=== PATIENT | female | born 2000 | race Caucasian/White ===

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

== ENCOUNTER 2022-06-27 15:16 | Emergency (ER) | payer OTHER, SELFPAY ==
--- NOTE | ~2022-06-27 | XR_ITS ---
EXAMINATION: XR chest 2V DATE: 06/27/2022 16:09 INDICATION: Chest pain with inspiration. TECHNIQUE: Frontal and lateral views of the chest were obtained. COMPARISON: Chest 2 views 09/03/2021 FINDINGS: The chest demonstrates clear lungs without pneumonia, pleural effusion, or pneumothorax. Th e heart size is normal. IMPRESSION: 1. No acute cardiopulmonary disease. Reviewed, dictated and finalized at location A.
--- NOTE | ~2022-06-27 | XR_ITS ---
EXAMINATION: XR ribs RT 2V DATE: 06/27/2022 17:10 INDICATION: Right mid and lower rib pain on inspiration. TECHNIQUE: 2 views of the right ribs on 3 radiographs were obtained. COMPARISON: Chest 2 views 06/27/2022 FINDINGS: There is no right-sided pneumonia, pleural effusion, pneumothorax. IMPRESSION: 1. No rib fracture. Reviewed, dictated and finalized at location A. IMPRESSION: 1. No rib fracture.
[2022-06-27 15:58] VITALS: BP 123/71; PULSE 92; RESP 20; TEMP 36.9; O2SAT 100
[2022-06-27] MEDS: KETOROLAC (*BKC) 60 MG/2 ML VIAL IM (17:14)
[2022-06-27 17:21] LABS: Basophils Percent Auto 0.3 % (0.2-1.2); Eosinophils Absolute Auto 0.1 K/mm3 (0-0.3); Eosinophils Percent Auto 0.8 % (0-4.4); Hematocrit 39.3 % (37.0-47.0); Hemoglobin 13.2 g/dL (12.0-15.0); Immature Granulocyte Absolute 0.02 K/mm3 (0.00-0.031); Immature Granulocyte Percent A 0.3 % (0-0.5); Lymphocytes Percent Auto 22.8 % (18.3-44.2); Mean Corpuscular HGB Conc 33.6 g/dl (32-36); Mean Corpuscular Hemoglobin 31.8 pg (26-34); Mean Corpuscular Volume 94.7 fl (80-100); Mean Platelet Volume 10.1 fl (7.4-10.4); Monocytes Absolute Auto 0.5 K/mm3 (0.1-0.6); Monocytes Percent Auto 6.4 % (2.6-8.5); Neutrophils Absolute Auto 5.2 K/mm3 (1.3-6.7); Neutrophils Percent Auto 69.4 % (45.5-73.1); Platelet Count Result 310 k/mm3 (150-375); Red Blood Count 4.15 M/mm3 (4.2-5.4); Red Cell Distribution Width 12.1 % (11.5-14.5); White Blood Count 7.5 K/mm3 (4.5-10.0)
[2022-06-27 17:32] LABS: Anion Gap 15 mmol/L (8-16); Blood Urea Nitrogen 17 mg/dL (8-21); Calcium 8.9 mg/dL (8.9-10.7); Carbon Dioxide 25 mmol/L (22-30); Chloride 103 mmol/L (98-107); Estimated CRCL calculation 96 ml/min; Estimated Glomerular Filt Rate > 60; Glucose 97 mg/dL (65-110); Potassium 3.7 mmol/L (3.4-5.0); Sodium 143 mmol/L (134-143)
[2022-06-27 17:35] VITALS: RESP 18
[2022-06-27 17:43] LABS: D Dimer < 0.27 ug/mL (<0.48)
--- NOTE | 2022-06-27 19:16 | ED.GENADULT ---
HPI - General Adult General Chief complaint: Unspecified Stated complaint: abd pain Time Seen by Provider: 06/27/22 16:41 History of Present Illness HPI narrative: Patient is a 21-year-old female who presents ER with right-sided chest discomfort. Its in her ribs. She was pouring water for dogs when the pain began. Its worse with deep breath. No fevers or chills or sweats. No runny nose or sore throat or productive cough. No hemoptysis. No lower extremity swelling or calf pain. Has not tried any pain medication. She does not take any hormones. Related Data Home Medications Medication Instructions Recorded Confirmed clonidine HCl 0.1 mg tablet 04/26/21 aripiprazole 10 mg tablet mg 06/27/22 duloxetine 20 mg capsule,delayed mg PO 06/27/22 release Allergies Allergy/AdvReac Type Severity Reaction Status Date / Time No Known Allergies Allergy Unknown Verified 06/27/22 17:16 Review of Systems Review of Systems: All systems reviewed & are unremarkable except as noted in HPI and below Constitutional: Constitutional: Denies chills and Denies fever(s) Cardiovascular: Cardiovascular: Reports chest pain, Denies radiating jaw, neck or arm pain and Denies palpitations Respiratory: Respiratory: Denies cough, Reports pain on inspiration, Denies dyspnea and Denies wheezing Gastrointestinal: Gastrointestinal: Denies abdominal pain, Denies nausea and Denies vomiting PMFSH Past Medical History Medical History (Updated 06/27/22 @ 19:21 by Marc De La Cruz MD) Anxiety Surgical History Surgical History (Updated 06/27/22 @ 19:17 by Marc De La Cruz MD) No pertinent past surgical history Social History Social History Smoking status: Former smoker Substance use: never Exam Narrative: GENERAL: Well-appearing, well-nourished, and in no acute distress. HEAD: Normocephalic, atraumatic. CHEST: Clear to auscultation. No respiratory distress. Tender palpation over the ribs on the right side posterior laterally. HEART: Regular rate and rhythm. Normal peripheral pulses. ABDOMEN: Soft, nontender, nondistended. EXTREMITIES: Normal range of motion. No edema. SKIN: Warm, dry, no rash. NEURO: Alert and oriented x3. PSYCH: Normal mood and affect. Course Course Emergency Course: Imaging labs unremarkable. Toradol given for pain. Discharge home. Vital Signs Vital signs: Vital Signs Temperature 98.5 F 06/27/22 15:58 Pulse Rate 92 06/27/22 15:58 Respiratory Rate 20 06/27/22 15:58 Blood Pressure 123/71 06/27/22 15:58 Pulse Oximetry 100 06/27/22 15:58 Oxygen Delivery Room Air 06/27/22 15:58 Temperature 98.5 F 06/27/22 15:58 Pulse Rate 92 06/27/22 15:58 Respiratory Rate 18 06/27/22 17:35 Blood Pressure 123/71 06/27/22 15:58 Pulse Oximetry 100 06/27/22 15:58 Oxygen Delivery Room Air 06/27/22 15:58 Medical Decision Making Vital Signs Vital Signs: Vital Signs Temperature 98.5 F 06/27/22 15:58 Pulse Rate 92 06/27/22 15:58 Respiratory Rate 20 06/27/22 15:58 Blood Pressure 123/71 06/27/22 15:58 Pulse Oximetry 100 06/27/22 15:58 Oxygen Delivery Room Air 06/27/22 15:58 Temperature 98.5 F 06/27/22 15:58 Pulse Rate 92 06/27/22 15:58 Respiratory Rate 18 06/27/22 17:35 Blood Pressure 123/71 06/27/22 15:58 Pulse Oximetry 100 06/27/22 15:58 Oxygen Delivery Room Air 06/27/22 15:58 Lab Data Result diagrams: 06/27/22 17:15 06/27/22 17:15 Labs: Lab Results 06/27/22 06/27/22 06/27/22 Range/Units 17:15 17:15 17:15 WBC 7.5 (4.5-10.0) K/mm3 RBC 4.15 L (4.2-5.4) M/mm3 Hgb 13.2 (12.0-15.0) g/dL Hct 39.3 (37.0-47.0) % MCV 94.7 (80-100) fl MCH 31.8 (26-34) pg MCHC 33.6 (32-36) g/dl RDW 12.1 (11.5-14.5) % Plt Count 310 (150-375) k/mm3 MPV 10.1 (7.4-10.4) fl Immature Gran % (Auto)
[2022-06-27 19:32] VITALS: BP 100/67; PULSE 65; RESP 18; O2SAT 100
== END 2022-06-27 19:34 | disposition home or self-care (01) ==
PROVIDERS: Emergency Provider Emergency Medicine
DX: S29.011A Strain of muscle and tendon of front wall of thorax, initial encounter (principal); F41.9 Anxiety disorder, unspecified; Z87.891 Personal history of nicotine dependence; X58.XXXA Exposure to other specified factors, initial encounter
CPT/HCPCS: 36415; 71046; 71100; 80048; 85025; 85380; 96372; 99283; J1885

== ENCOUNTER 2022-08-11 01:36 | Emergency (ER) | payer OTHER, SELFPAY ==
--- NOTE | ~2022-08-11 | CT_ITS ---
EXAMINATION: CT hand RT w con DATE: 08/11/2022 06:28 INDICATION: Cat bite to right index finger. TECHNIQUE: Computed tomography (CT) of the right hand was performed with 100 cc Omnipaque 350 intrave nous contrast. The dose-length product was 426.89 mGy-cm. Automated exposure control and iterative re construction technique were employed. COMPARISON: None FINDINGS: There is a possible 2 mm loculated collection at the second PIP joint. There is mild surrou nding edema. There is possible flexor and extensor tendon tenosynovitis. No fracture is identified.. IMPRESSION: 1. Possible 2 mm loculated fluid collection at the second PIP joint with mild surrounding edema. Poss ible flexor and extensor tendon synovitis. Findings suspicious for infection. Consider correlation [facility] MRI. Reviewed, dictated and finalized at location A. IMPRESSION: 1. Possible 2 mm loculated fluid collection at the second PIP joint with mild s urrounding edema. Possible flexor and extensor tendon synovitis. Findings suspi cious for infection. Consider correlation with MRI.
--- NOTE | ~2022-08-11 | XR_ITS ---
XR hand RT min 3V 08/11/2022 04:16 Indication: Patient bit by cat. Right second finger pain. Procedure: 3 views right hand Comparison: No prior studies for comparison. Findings: No fracture, subluxation or dislocation. No significant joint effusion. No foreign bodies. Impression: 1: No acute fracture. Reviewed, dictated and finalized at location A. Impression: 1: No acute fracture.
[2022-08-11 01:43] VITALS: BP 97/63; PULSE 94; RESP 18; TEMP 36.6; O2SAT 100
--- NOTE | 2022-08-11 03:54 | ED.GENADULT ---
HPI - General Adult General Chief complaint: Animal Bite <Navneet Seran MD - Last Filed: 08/11/22 06:58> Stated complaint: cat bite R hand <Navneet Serna MD - Last Filed: 08/11/22 06:58> Time Seen by Provider: 08/11/22 03:40 <Navneet Serna MD - Last Filed: 08/11/22 06:58> History of Present Illness HPI narrative: Patient 22-year-old female who presents the emergency department with chief complaint of cat bite to right index finger. The patient states that on Friday night she was bit by her cat the patient states that she noticed that her finger started getting red and swollen and it hurts to extend her finger. The patient reports no fever reports that the redness and swelling is localized to the index finger on the right hand the patient is right-hand dominant reports he is unsure of her last tetanus status. <Navneet Serna MD - Last Filed: 08/11/22 06:58> Related Data Home medications: Home Medications Medication Instructions Recorded Confirmed clonidine HCl 0.1 mg tablet 04/26/21 aripiprazole 10 mg tablet mg 06/27/22 duloxetine 20 mg capsule,delayed mg PO 06/27/22 release <Navneet Serna MD - Last Filed: 08/11/22 06:58> Allergies/adverse reactions: Allergies Allergy/AdvReac Type Severity Reaction Status Date / Time No Known Allergies Allergy Unknown Verified 08/11/22 07:32 <Navneet Serna MD - Last Filed: 08/11/22 06:58> Review of Systems Review of Systems: A 10 system review of systems was completed on the patient and is negative except for what is stated in the HPI. Nursing and ancillary documentation was reviewed. <Navneet Serna MD - Last Filed: 08/11/22 06:58> PMFSH Past Medical History Medical History: Medical History (Updated 08/11/22 @ 06:58 by Navneet Serna MD) Anxiety <Navneet Serna MD - Last Filed: 08/11/22 06:58> Surgical History Surgical History: Surgical History (Updated 06/27/22 @ 19:17 by Marc De La Cruz MD) No pertinent past surgical history <Navneet Serna MD - Last Filed: 08/11/22 06:58> Social History Social History: Social History Smoking status: Former smoker Substance use: never <Navneet Serna MD - Last Filed: 08/11/22 06:58> Exam Narrative: GENERAL: Well-appearing, well-nourished, and in no acute distress. HEAD: Normocephalic, atraumatic. EYES: PERRLA and EOMI. ENT: Nares clear, no rhinorrhea or epistaxis. Mucous membranes moist. NECK: Supple. CHEST: Clear to auscultation. No respiratory distress. HEART: Regular rate and rhythm. No murmur heard. Normal peripheral pulses. ABDOMEN: Soft, nontender, nondistended, normal active bowel sounds. EXTREMITIES: Normal range of motion. No edema. SKIN: Warm, dry, there is redness and swelling of the right index finger. NEURO: No focal deficits. Alert and oriented x3. PSYCH: Normal mood and affect. <Navneet Serna MD - Last Filed: 08/11/22 06:58> GENERAL: Well-appearing, well-nourished, and in no acute distress. HEAD: Normocephalic, atraumatic. EYES: PERRLA and EOMI. ENT: Mucous membranes moist. NECK: Supple. CHEST: Clear to auscultation. No respiratory distress. HEART: Regular rate and rhythm. No murmur heard. Normal peripheral pulses. ABDOMEN: Soft, nontender, nondistended, normal active bowel sounds. EXTREMITIES: Focused exam of the right hand reveals a second digit that is swollen and partially flexed, unable to perform active flexion or extension due to pain, passive flexion extension results in exquisite discomfort. She is tender over the flexor tendon. There is some redness and lymphangitic streaking moving down the hand. Additionally patient has what appears to be a pustule over the proximal phalanx. SKIN: Warm, dry, there is redness and swelling of the right index finger
[2022-08-11] MEDS: TETANUS,DIPHTHERIA,AC PERTUSSIS ADULT (0.5 ML) BOOSTRIX IM (04:32)
[2022-08-11] MEDS: SODIUM CHLORIDE 0.9% IV 1,000 ML 999 ML IV CONT (04:41)
[2022-08-11 04:46] LABS: Basophils Percent Auto 0.3 % (0.2-1.2); Eosinophils Absolute Auto 0.1 K/mm3 (0-0.3); Eosinophils Percent Auto 1.1 % (0-4.4); Hematocrit 35.2 % (37.0-47.0); Hemoglobin 11.8 g/dL (12.0-15.0); Immature Granulocyte Absolute 0.04 K/mm3 (0.00-0.031); Immature Granulocyte Percent A 0.3 % (0-0.5); Lymphocytes Absolute Auto 2.43 K/mm3 (0.9-3.2); Lymphocytes Percent Auto 20.5 % (18.3-44.2); Mean Corpuscular HGB Conc 33.5 g/dl (32-36); Mean Corpuscular Hemoglobin 31.7 pg (26-34); Mean Corpuscular Volume 94.6 fl (80-100); Monocytes Absolute Auto 1.5 K/mm3 (0.1-0.6); Monocytes Percent Auto 12.2 % (2.6-8.5); Neutrophils Absolute Auto 7.8 K/mm3 (1.3-6.7); Neutrophils Percent Auto 65.6 % (45.5-73.1); Platelet Count Result 316 k/mm3 (150-375); Red Blood Count 3.72 M/mm3 (4.2-5.4); Red Cell Distribution Width 12.3 % (11.5-14.5); White Blood Count 11.9 K/mm3 (4.5-10.0)
[2022-08-11 04:58] LABS: Alanine Aminotransferase 18 U/L (6-35); Albumin Level 4.4 g/dL (3.5-5.1); Alkaline Phosphatase 72 U/L (38-126); Anion Gap 9 mmol/L (8-16); Aspartate Amino Transferase 25 U/L (14-36); Bilirubin,Total 1.6 mg/dL (0.2-1.3); Blood Urea Nitrogen 19 mg/dL (7-17); Calcium 8.8 mg/dL (8.4-10.2); Carbon Dioxide 23 mmol/L (22-30); Chloride 106 mmol/L (98-107); Estimated CRCL calculation 110 ml/min; Estimated Glomerular Filt Rate > 60; Glucose 98 mg/dL (65-110); Potassium 3.9 mmol/L (3.4-5.0); Sodium 138 mmol/L (137-145)
[2022-08-11] MEDS: AMPICILLIN SULB 3 GM/NS 100 ML 3 GM/100 ML VIAL IVPB (05:13)
[2022-08-11] MEDS: HYDROmorphone HCL INJ (*CRX) 1 MG/ML SYR IV PUSH (07:24)
[2022-08-11 07:32] VITALS: BP 107/70; PULSE 84; RESP 18; O2SAT 100
[2022-08-11 08:16] VITALS: BP 102/89; PULSE 86; RESP 18; O2SAT 100
== END 2022-08-11 08:54 | disposition short-term general hospital (02) ==
PROVIDERS: Emergency Provider Emergency Medicine; PCP Obstetrics & Gynecology
DX: S66.10 Unspecified injury of flexor muscle, fascia and tendon of other and unspecified finger at wrist and hand level (principal); F41.9 Anxiety disorder, unspecified; Z23 Encounter for immunization; W55.01XA Bitten by cat, initial encounter
CPT/HCPCS: 36415; 73130; 73201; 80053; 83605; 85025; 90471; 90715; 96361; 96374; 96375; 99285; J0295; J1170; J7030; Q9967

== ENCOUNTER 2022-10-31 23:59 | Emergency (ER) | payer OTHER, SELFPAY ==
--- NOTE | ~2022-10-31 | XR_ITS ---
Portable chest x-ray Comparison: 06/27/2022 Clinical History: Weakness Findings: Lungs are clear, without focal consolidation or pleural effusion. Cardiomediastinal silho uette is stable. Bones and soft tissues are unremarkable. Impression: Normal chest. Reviewed, dictated and finalized at [facility]. EM MILL ROLLER Impression: Normal chest.
[2022-11-01] VITALS (17 sets, daily range): BP systolic 96–114; BP diastolic 60–75; PULSE 88–89; RESP 16; O2SAT 99–100
--- NOTE | 2022-11-01 01:08 | ECG_ITS ---
Measurements Intervals [place] Rate: 84 P: 59 [place]: 138 QRS: 61 QRSD: 97 T: 28 QT: 361 QTc: 428 Interpretive Statements SINUS RHYTHM NORMAL ECG COMPARED TO ECG 09/03/2021 01:47:37 NO SIGNIFICANT CHANGES Electronically Signed On 11-01-2022 7:45:30 DERMATOLOGY TECHNICIAN by Agusto Hawley D.O.
[2022-11-01] MEDS: SODIUM CHLORIDE 0.9% IV 1,000 ML 999 ML IV CONT (01:25)
--- NOTE | 2022-11-01 01:43 | ED.GENADULT ---
HPI - General Adult General Chief complaint: Unspecified Stated complaint: gen weakness Time Seen by Provider: 11/01/22 01:03 History of Present Illness HPI narrative: Patient is a 22-year-old female that presents emergency department with chief complaint of generalized malaise. The patient reports that for some time she has been feeling weak and been feeling lightheaded patient states that is worse whenever she stands and reports that she has been getting progressively weaker at home that now she is so weak that it is difficult to even get up and walk around. The patient denies fever denies vomiting denies diarrhea reports that she has had a heavy period this month. The patient denies abdominal pain denies flank pain. The patient reports she has seen her primary doctor who ordered a large number of blood test but she has not received the results of those yet. Related Data Home Medications Medication Instructions Recorded Confirmed clonidine HCl 0.1 mg tablet 04/26/21 aripiprazole 10 mg tablet mg 06/27/22 duloxetine 20 mg capsule,delayed mg PO 06/27/22 release Allergies Allergy/AdvReac Type Severity Reaction Status Date / Time No Known Allergies Allergy Unknown Verified 11/01/22 00:09 Review of Systems Review of Systems: A 10 system review of systems was completed on the patient and is negative except for what is stated in the HPI. Nursing and ancillary documentation was reviewed. PMFSH Past Medical History Medical History Anxiety Surgical History Surgical History No pertinent past surgical history Social History Social History Smoking status: Former smoker Substance use: never Exam Narrative: GENERAL: Well-appearing, well-nourished, and in no acute distress. HEAD: Normocephalic, atraumatic. EYES: PERRLA and EOMI. ENT: Nares clear, no rhinorrhea or epistaxis. Mucous membranes moist. NECK: Supple. CHEST: Clear to auscultation. No respiratory distress. HEART: Regular rate and rhythm. No murmur heard. Normal peripheral pulses. ABDOMEN: Soft, nontender, nondistended, normal active bowel sounds. EXTREMITIES: Normal range of motion. No edema. SKIN: Warm, dry, no rash. NEURO: No focal deficits. Alert and oriented x3. PSYCH: Normal mood and affect. Course Vital Signs Vital signs: Vital Signs Pulse Rate 88 11/01/22 00:04 Respiratory Rate 16 11/01/22 00:04 Blood Pressure 109/69 11/01/22 00:04 Pulse Oximetry 100 11/01/22 00:04 Oxygen Delivery Room Air 11/01/22 00:04 Pulse Rate 88 11/01/22 00:04 Respiratory Rate 16 11/01/22 00:04 Blood Pressure 109/69 11/01/22 00:04 Pulse Oximetry 100 11/01/22 00:04 Oxygen Delivery Room Air 11/01/22 00:04 Medical Decision Making MDM Narrative Medical decision making narrative: EKG interpreted by me as sinus rhythm rate of [address] elevation or ST depression unchanged from previous EKGs Chest x-ray interpreted by me shows no evidence of focal infiltrate Laboratory studies were reviewed by me Urinalysis showed evidence of UTI. Vital Signs Vital Signs: Vital Signs Pulse Rate 88 11/01/22 00:04 Respiratory Rate 16 11/01/22 00:04 Blood Pressure 109/69 11/01/22 00:04 Pulse Oximetry 100 11/01/22 00:04 Oxygen Delivery Room Air 11/01/22 00:04 Pulse Rate 88 11/01/22 00:04 Respiratory Rate 16 11/01/22 00:04 Blood Pressure 109/69 11/01/22 00:04 Pulse Oximetry 100 11/01/22 00:04 Oxygen Delivery Room Air 11/01/22 00:04 Lab Data 11/01/22 01:26 11/01/22 01:26 Labs: Lab Results 11/01/22 11/01/22 11/01/22 Range/Units 01: 01: 02:15 WBC (4.5-10.0) K/mm3 RBC (4.2-5.4) M/mm3 Hgb (12.0-15.0) g/dL Hct (37.0-47.0) % MCV (80-100)
[2022-11-01 01:58] LABS: Alanine Aminotransferase 17 U/L (6-35); Albumin Level 3.4 g/dL (3.5-5.1); Alkaline Phosphatase 71 U/L (38-126); Anion Gap 2 mmol/L (8-16); Aspartate Amino Transferase 21 U/L (14-36); Bilirubin,Total 0.4 mg/dL (0.2-1.3); Blood Urea Nitrogen 15 mg/dL (7-17); Calcium 8.3 mg/dL (8.4-10.2); Carbon Dioxide 27 mmol/L (22-30); Chloride 111 mmol/L (98-107); Estimated CRCL calculation 124 ml/min; Estimated Glomerular Filt Rate > 60; Glucose 82 mg/dL (65-110); Lactic Acid Reflex 0.9 mmol/L (0.7-2.0); Magnesium 1.9 mg/dL (1.6-2.3); Potassium 4.1 mmol/L (3.4-5.0); Sodium 140 mmol/L (137-145)
[2022-11-01 02:30] LABS: Basophils Percent Auto 0.3 % (0.2-1.2); Eosinophils Absolute Auto 0.1 K/mm3 (0-0.3); Eosinophils Percent Auto 1.1 % (0-4.4); Immature Granulocyte Absolute 0.05 K/mm3 (0.00-0.031); Immature Granulocyte Percent A 0.4 % (0-0.5); Lymphocytes Percent Auto 21.8 % (18.3-44.2); Mean Corpuscular HGB Conc 33.3 g/dl (32-36); Mean Corpuscular Hemoglobin 31.9 pg (26-34); Mean Corpuscular Volume 95.7 fl (80-100); Mean Platelet Volume 9.8 fl (7.4-10.4); Monocytes Percent Auto 8.1 % (2.6-8.5); Neutrophils Absolute Auto 8.8 K/mm3 (1.3-6.7); Neutrophils Percent Auto 68.3 % (45.5-73.1); Platelet Count Result 288 k/mm3 (150-375); Red Blood Count 3.45 M/mm3 (4.2-5.4); White Blood Count 12.8 K/mm3 (4.5-10.0)
[2022-11-01 02:33] LABS: Add Urine Microscopic? YES; Appearance Urine Slightly Cloudy (Clear); Bilirubin Urine Negative (Negative); Blood Urine 2+ (Negative); Color Urine Yellow (Yellow); Glucose Urine UA Negative (Negative); Ketones Urine Negative (Negative); Leukocyte Esterase Ur Trace LEU/UL (Negative); Nitrate Urine Negative (Negative); Protein Urine Negative (Negative); Specific Grav Ur 1.025 (1.001-1.035); Urobilinogen Urine 0.2 mg/dL (<2.0); pH Urine 5.5 (5.0-9.0)
[2022-11-01 03:06] LABS: Bacteria Urine Trace /hpf; Mucus Urine Rare /lpf; RBC Urine 0-2 /hpf (0-2); Squamous Epithelial Cell Urine Rare /hpf (Few)
== END 2022-11-01 04:08 | disposition home or self-care (01) ==
PROVIDERS: Emergency Provider Emergency Medicine; PCP Family Medicine
DX: N39.0 Urinary tract infection, site not specified (principal); R53.1 Weakness; F41.9 Anxiety disorder, unspecified; Z87.891 Personal history of nicotine dependence
CPT/HCPCS: 36415; 71045; 80053; 81001; 81025; 83605; 83735; 84443; 85025; 87086; 87088; 93005; 96360; 96361; 99283; J7030

== ENCOUNTER 2023-01-30 06:39 | Emergency (ER) | payer OTHER, SELFPAY ==
[2023-01-30 07:00] VITALS: BP 115/79; PULSE 95; RESP 14; TEMP 36.8; O2SAT 100
[2023-01-30 07:18] LABS: Basophils Absolute Auto 0.1 K/mm3 (0.0-0.1); Basophils Percent Auto 0.5 % (0.2-1.2); Eosinophils Absolute Auto 0.2 K/mm3 (0-0.3); Eosinophils Percent Auto 1.6 % (0-4.4); Hematocrit 43.8 % (37.0-47.0); Hemoglobin 14.8 g/dL (12.0-15.0); Immature Granulocyte Absolute 0.02 K/mm3 (0.00-0.031); Immature Granulocyte Percent A 0.2 % (0-0.5); Lymphocytes Absolute Auto 3.33 K/mm3 (0.9-3.2); Lymphocytes Percent Auto 33.3 % (18.3-44.2); Mean Corpuscular HGB Conc 33.8 g/dl (32-36); Mean Corpuscular Volume 94.8 fl (80-100); Mean Platelet Volume 10.2 fl (7.4-10.4); Monocytes Absolute Auto 0.7 K/mm3 (0.1-0.6); Monocytes Percent Auto 7.4 % (2.6-8.5); Neutrophils Absolute Auto 5.7 K/mm3 (1.3-6.7); Platelet Count Result 367 k/mm3 (150-375); Red Blood Count 4.62 M/mm3 (4.2-5.4); Red Cell Distribution Width 12.3 % (11.5-14.5)
[2023-01-30 07:26] LABS: Appearance Urine Cloudy (Clear); Bacteria Urine 1+ /hpf; Bilirubin Urine Negative (Negative); Color Urine Yellow (Yellow); Glucose Urine UA Negative (Negative); Ketones Urine Negative (Negative); Leukocyte Esterase Ur Negative LEU/UL (Negative); Nitrate Urine Negative (Negative); Non Pathogenic Casts 0-2; Protein Urine Negative (Negative); RBC Urine 0-2 /hpf (0-2); Specific Grav Ur 1.026 (1.001-1.035); Squamous Epithelial Cell Urine Moderate /hpf (Few); Urobilinogen Urine 0.2 mg/dL (<2.0); pH Urine 5.5 (5.0-9.0)
[2023-01-30 07:30] LABS: Add Urine Microscopic? YES
[2023-01-30 07:32] LABS: Acetaminophen < 10 ug/mL (10-30); Salicylate < 1.0 mg/dL (2-20)
[2023-01-30 07:34] LABS: Alanine Aminotransferase 20 U/L (6-35); Albumin Level 5.1 g/dL (3.5-5.1); Alkaline Phosphatase 69 U/L (38-126); Anion Gap 4 mmol/L (8-16); Aspartate Amino Transferase 23 U/L (14-36); Bilirubin,Total 0.7 mg/dL (0.2-1.3); Blood Urea Nitrogen 16 mg/dL (7-17); Calcium 9.2 mg/dL (8.4-10.2); Carbon Dioxide 31 mmol/L (22-30); Chloride 108 mmol/L (98-107); Estimated CRCL calculation 126 ml/min; Estimated Glomerular Filt Rate > 60; Glucose 91 mg/dL (65-110); Potassium 3.6 mmol/L (3.4-5.0); Sodium 143 mmol/L (137-145)
[2023-01-30 07:36] LABS: Ethanol < 10 mg/dL (<10)
[2023-01-30 07:40] LABS: Amphetamine Screen Urine Negative (Negative); Barbiturate Screen Urine Negative (Negative); Benzodiazepines Screen Urine Negative (Negative); Cannabinoid Screen Urine Positive (Negative); Cocaine Screen Urine Negative (Negative); Methadone Screen Urine Negative (Negative); Opiate Screen Urine Negative (Negative); Phencyclidine Screen Urine Negative (Negative)
[2023-01-30 07:54] LABS: SARS-CoV-2 RNA PCR Negative (Negative)
--- NOTE | 2023-01-30 10:23 | ED.PSYCH ---
HPI - Psych General Chief Complaint: Psychiatric Symptoms Stated Complaint: SI Time Seen by Provider: 01/30/23 07:01 History of Present Illness HPI Narrative: Patient is a 22-year-old female who identifies as a male who presents ER with suicidal ideation. Ongoing over the last week but worsened last night. Has been drinking some alcohol. Recently broke up with significant other. Has thoughts of jumping out in front of a car to end her own life. Has had previous psychiatric hospitalizations in the past. Denies auditory or visual hallucinations. Related Data Home Medications Medication Instructions Recorded Confirmed clonidine HCl 0.1 mg tablet 04/26/21 aripiprazole 10 mg tablet mg 06/27/22 duloxetine 20 mg capsule,delayed mg PO 06/27/22 release Allergies Allergy/AdvReac Type Severity Reaction Status Date / Time No Known Allergies Allergy Unknown Verified 01/30/23 07:11 Review of Systems Review of Systems: All systems reviewed & are unremarkable except as noted in HPI and below Constitutional: Constitutional: Denies chills, Denies fatigue and Denies fever(s) ENT: Denies nasal congestion and Denies sore throat Cardiovascular: Cardiovascular: Denies chest pain, Denies radiating jaw, neck or arm pain and Denies slow heart rate Respiratory: Respiratory: Denies cough and Denies dyspnea Gastrointestinal: Gastrointestinal: Denies abdominal pain, Denies nausea and Denies vomiting Psychiatric: Psychiatric: Denies anxiety, Reports depression, Denies homicidal ideation and Reports suicidal ideation PMFSH Past Medical History Medical History Anxiety Surgical History Surgical History No pertinent past surgical history Social History Social History Smoking status: Former smoker Substance use: never Exam Narrative: GENERAL: Well-appearing, well-nourished, and in no acute distress. HEAD: Normocephalic, atraumatic. EYES: PERRL and EOMI. ENT: Mucous membranes moist. CHEST: Clear to auscultation. No respiratory distress. HEART: Regular rate and rhythm. Normal peripheral pulses. EXTREMITIES: Normal range of motion. No edema. SKIN: Warm, dry, no rash. NEURO: Alert and oriented x3. PSYCH: Endorses suicidal ideation but no homicidal ideation, endorses depression, not responding to internal stimuli. Course Course Emergency Course: 929: Patient considered medically clear for crisis evaluation and psychiatric hospitalization. 1025: Patient has been evaluated by crisis. Patient is voluntary and would like to go to [place] for psychiatric care. They would like us to fax information. 1252: accepted by Dr. Burns at [place]. Vital Signs Vital signs: Vital Signs Temperature 98.2 F 01/30/23 07:00 Pulse Rate 95 01/30/23 07:00 Respiratory Rate 14 01/30/23 07:00 Blood Pressure 115/79 01/30/23 07:00 Pulse Oximetry 100 01/30/23 07:00 Oxygen Delivery Room Air 01/30/23 07:00 Temperature 98.2 F 01/30/23 07:00 Pulse Rate 95 01/30/23 07:00 Respiratory Rate 14 01/30/23 07:00 Blood Pressure 115/79 01/30/23 07:00 Pulse Oximetry 100 01/30/23 07:00 Oxygen Delivery Room Air 01/30/23 07:00 MDM - Psych Lab Data 01/30/23 07:06 01/30/23 07:06 Labs: Lab Results 01/30/23 01/30/23 01/30/23 Range/Units 07:06 07:06 07:06 WBC (4.5-10.0) K/mm3 RBC (4.2-5.4) M/mm3 Hgb (12.0-15.0) g/dL Hct (37.0-47.0) % MCV (80-100) fl MCH (26-34) pg MCHC (32-36) g/dl RDW (11.5-14.5) % Plt Count (150-375) k/mm3 MPV (7.4-10.4) fl Immature Gran % (Auto) (0-0.5) % Neut % (Auto) (45.5-73.1) % Lymph % (Auto) (18.3-44.2) % Snyder % (Auto) (2.6-8.5) % Eos % (Auto) (0-4.4) % Baso % (Auto) (0.2-1.2) % L
--- NOTE | 2023-01-30 10:46 | PC.NURSE ---
OCTAVIO FERRO [phone]
--- NOTE | 2023-01-30 12:55 | PC.NURSE ---
Patient accepted to [facility]. Spoke with EULA Lerma to give report.
[2023-01-30 12:56] VITALS: BP 114/73; PULSE 89; RESP 17; TEMP 36.6; O2SAT 100
== END 2023-01-30 12:55 ==
PROVIDERS: Emergency Medicine; Emergency Provider Emergency Medicine
DX: F32.A Depression, unspecified (principal); R45.851 Suicidal ideations; Z20.822 Contact with and (suspected) exposure to COVID-19; F41.9 Anxiety disorder, unspecified
CPT/HCPCS: 36415; 80053; 80307; 81001; 81025; 84443; 85025; 87086; 99285; U0003; U0005

== ENCOUNTER 2023-02-04 00:35 | Emergency (ER) | payer OTHER, SELFPAY ==
[2023-02-04] VITALS (70 sets, daily range): BP systolic 90–129; BP diastolic 61–86; PULSE 78–121; RESP 10–34; TEMP 36.4; O2SAT 96–100
--- NOTE | 2023-02-04 01:29 | ECG_ITS ---
Measurements Intervals [place] Rate: 94 P: 58 FL: 136 QRS: 57 QRSD: 110 T: 18 QT: 361 QTc: 452 Interpretive Statements SINUS RHYTHM NORMAL ECG COMPARED TO ECG 11/01/2022 01:24:27 NO SIGNIFICANT CHANGES Electronically Signed On 02-04-2023 14:39:53 CDT by Luis M Mendes M.D.
--- NOTE | 2023-02-04 01:31 | ED.PSYCH ---
HPI - Psych General Chief Complaint: Psychiatric Symptoms Stated Complaint: overdose on pills Time Seen by Provider: 02/04/23 01:19 Source: patient and RN notes reviewed Mode of arrival: ambulatory Limitations: no limitations History of Present Illness HPI Narrative: THis is a 22 year old female who presents for intentional drug overdose. Patient was admitted to [place] on 01/30/23 for suicidal ideation and she was discharged from [facility] yesterday morning. Patient states tonight she was being kicked our her parents out with her partner. She took unknown amount of Geodon and unknown amount of Venlafaxine. She states the venlafaxine is not her medication. She took this medication around 11pm and she reported having emesis 1 hour later. She reports dizziness earlier that has resolved. She only complains about tiredness now. She denies taking any other medication and she denies alcohol use. Related Data Home Medications Medication Instructions Recorded Confirmed clonidine HCl 0.1 mg tablet 04/26/21 aripiprazole 10 mg tablet mg 06/27/22 duloxetine 20 mg capsule,delayed mg PO 06/27/22 release Allergies Allergy/AdvReac Type Severity Reaction Status Date / Time No Known Allergies Allergy Unknown Verified 01/30/23 07:11 Review of Systems Constitutional: Constitutional: Denies weakness Cardiovascular: Cardiovascular: Denies syncope, Denies rapid heart rate, Denies irregular heart rhythm, Denies leg edema and Denies dyspnea Respiratory: Respiratory: Denies chest congestion, Denies hemoptysis, Denies excessive phlegm production and Denies dyspnea Gastrointestinal: Gastrointestinal: Denies abdominal pain, Denies hematochezia, Denies diarrhea and Denies vomiting Genitourinary: Genitourinary: Denies hematuria and Denies dysuria Musculoskeletal: Musculoskeletal: Denies joint swelling, Denies loss of height and Denies muscle weakness Neurologic: Denies syncope, Denies focal weakness and Denies weakness Psychiatric: Psychiatric: Reports anxiety, Reports depression and Reports suicidal ideation [facility] Past Medical History Medical History Anxiety Surgical History Surgical History No pertinent past surgical history Social History Social History (Updated 02/04/23 @ 01:35 by Jenn Lion MD) Smoking status: Former smoker Substance use: never Substance use type: marijuana Gender identity (if verbalized by the patient): Male Exam Const: General: no acute distress and alert Nutritional Appearance: well nourished HENMT: Head: normal to inspection Eyes: EOM: EOMs intact bilaterally Chest: Chest palpation & inspection: normal inspection of the chest Resp: Effort & Inspection: normal respiratory effort Auscultation: clear to auscultation bilaterally Cardio: Rate: regular rate Rhythm: regular rhythm Heart sounds: no murmurs GI: GI Palp: Yes Soft to palpation, No Tenderness to palpation present (GI), No Guarding due to palpation present (GI) and No Rigid due to palpation Skin: General skin exam: normal color Rashes: no rashes Neuro: General: patient oriented x3, moves all extremities and CN's II-XI intact bilaterally Cranial nerves: Yes Nystagmus not present Speech: normal speech Extrem: General: normal to inspection Psych: Appearance: grossly normal Speech and movement: Normal speech and movement present Attitude: cooperative and Guarded attititude/behavior present Thought process: Normal thought process present Thought content: Yes Suicidality present Course Reevaluation(s) Reevaluation #1: logan has no complaints. She has been sleeping and awaiting for medical clearance. Care turned over to Dr. Prasad for medical clearance and crisis evaluation. Date: 02/04/23 Time: 07:13 Vital Signs Vital signs: Vital Signs Temperature 36.4 C 02/04/23 00:45 Pulse Rat
[2023-02-04 01:58] LABS: Basophils Percent Auto 0.3 % (0.2-1.2); Eosinophils Percent Auto 0.4 % (0-4.4); Hematocrit 40.1 % (37.0-47.0); Hemoglobin 13.7 g/dL (12.0-15.0); Immature Granulocyte Absolute 0.03 K/mm3 (0.00-0.031); Immature Granulocyte Percent A 0.3 % (0-0.5); Lymphocytes Absolute Auto 2.03 K/mm3 (0.9-3.2); Lymphocytes Percent Auto 19.1 % (18.3-44.2); Mean Corpuscular HGB Conc 34.2 g/dl (32-36); Mean Corpuscular Hemoglobin 31.7 pg (26-34); Mean Corpuscular Volume 92.8 fl (80-100); Mean Platelet Volume 9.9 fl (7.4-10.4); Monocytes Absolute Auto 0.9 K/mm3 (0.1-0.6); Monocytes Percent Auto 8.4 % (2.6-8.5); Neutrophils Absolute Auto 7.6 K/mm3 (1.3-6.7); Neutrophils Percent Auto 71.5 % (45.5-73.1); Platelet Count Result 320 k/mm3 (150-375); Red Blood Count 4.32 M/mm3 (4.2-5.4); White Blood Count 10.7 K/mm3 (4.5-10.0)
[2023-02-04] MEDS: SODIUM CHLORIDE 0.9% IV 1,000 ML 999 ML IV CONT ×2 (01:59→04:13)
--- NOTE | 2023-02-04 02:08 | PC.NURSE ---
This RN was given a bag full of medications from triage that belong to the pt. Seven venlafaxine ER. RX was for 30 pills 33 ziprasidone. RX was for 60 One unidentified capsule as well. Medications locked in charge safe.
[2023-02-04 02:11] LABS: Alanine Aminotransferase 21 U/L (6-35); Albumin Level 4.9 g/dL (3.5-5.1); Alkaline Phosphatase 66 U/L (38-126); Anion Gap 8 mmol/L (8-16); Aspartate Amino Transferase 24 U/L (14-36); Blood Urea Nitrogen 19 mg/dL (7-17); Calcium 9.2 mg/dL (8.4-10.2); Carbon Dioxide 25 mmol/L (22-30); Chloride 106 mmol/L (98-107); Estimated CRCL calculation 110 ml/min; Estimated Glomerular Filt Rate > 60; Glucose 99 mg/dL (65-110); Potassium 3.6 mmol/L (3.4-5.0); Sodium 139 mmol/L (137-145)
[2023-02-04 02:13] LABS: Acetaminophen < 10 ug/mL (10-30); Ethanol < 10 mg/dL (<10); Salicylate < 1.0 mg/dL (2-20)
[2023-02-04 02:54] LABS: Appearance Urine Clear (Clear); Bilirubin Urine Negative (Negative); Blood Urine Negative (Negative); Color Urine Yellow (Yellow); Glucose Urine UA Negative (Negative); Ketones Urine Negative (Negative); Leukocyte Esterase Ur Negative LEU/UL (Negative); Nitrate Urine Negative (Negative); Protein Urine Negative (Negative); Specific Grav Ur 1.008 (1.001-1.035); Urobilinogen Urine 0.2 mg/dL (<2.0); pH Urine 5.5 (5.0-9.0)
[2023-02-04 02:59] LABS: Add Urine Microscopic? NO
--- NOTE | 2023-02-04 03:01 | PC.NURSE ---
Spoke with Melanie from poison control. Reference number [id number]. Recommend benzos for possible seizures, magnesium, potassium, ekg, acetaminophen, aspirin.
[2023-02-04 03:10] LABS: Amphetamine Screen Urine Negative (Negative); Barbiturate Screen Urine Negative (Negative); Benzodiazepines Screen Urine Negative (Negative); Cannabinoid Screen Urine Positive (Negative); Cocaine Screen Urine Negative (Negative); Methadone Screen Urine Negative (Negative); Opiate Screen Urine Negative (Negative); Phencyclidine Screen Urine Negative (Negative)
[2023-02-04 03:42] LABS: Pregnancy On Board Control Positive; Urine Pregnancy Test Negative
--- NOTE | 2023-02-04 05:57 | PC.NURSE ---
Updated poison control at this time.
[2023-02-04 07:34] LABS: SARS-CoV-2 RNA PCR Negative (Negative)
--- NOTE | 2023-02-04 07:49 | PC.NURSE ---
[place] with [facility], they state they can't see pt because she does not have active medicaid when they attempt to pull her up.
--- NOTE | 2023-02-04 08:01 | PC.NURSE ---
Spoke with [facility]. They state they can now see and assess pt.
--- NOTE | 2023-02-04 08:02 | PC.NURSE ---
Call placed to Crisis to cancel evaluation.
--- NOTE | 2023-02-04 08:58 | PC.NURSE ---
[facility] here to evaluate pt.
--- NOTE | 2023-02-04 09:42 | PC.NURSE ---
Yessenia from poison control called for update. Pt is past the peak of meds and has been released from care of poison control.
--- NOTE | 2023-02-04 13:16 | PC.NURSE ---
Patient record faxed to [facility] for consult.
--- NOTE | 2023-02-04 13:41 | PC.NURSE ---
Pt speaking with Kirstin - from [place]
--- NOTE | 2023-02-04 14:55 | PC.NURSE ---
[facility] requesting involuntary petition for admit. Spoke with Román from [facility] and she states the counselor that assessed this pt had to leave for emergency and cannot do it. Román states that the nursing staff needs to fill out petition.
--- NOTE | 2023-02-04 15:38 | PC.NURSE ---
Spoke with Roy, Kirstin - states have accepting doctor and bed available if involuntary paperwork can be filled out
--- NOTE | 2023-02-04 16:08 | PCCCNOTE ---
Involuntary Petition and MD Certificate Fax'd to [place] as requested.
== END 2023-02-04 21:20 ==
PROVIDERS: General Practice; Emergency Provider Emergency Medicine
DX: T43.212A Poisoning by selective serotonin and norepinephrine reuptake inhibitors, intentional self-harm, initial encounter (principal); T43.592A Poisoning by other antipsychotics and neuroleptics, intentional self-harm, initial encounter; Z20.822 Contact with and (suspected) exposure to COVID-19; F41.9 Anxiety disorder, unspecified
CPT/HCPCS: 36415; 80053; 80307; 81003; 81025; 83735; 84443; 85025; 93005; 96360; 96361; 99285; J7030; U0003; U0005

== ENCOUNTER 2023-06-24 21:36 | Emergency (ER) | payer OTHER, SELFPAY ==
--- NOTE | ~2023-06-24 | XR_ITS ---
Supine and upright views of the abdomen Clinical history: Abdominal pain, constipation Findings: Bowel gas pattern is nonspecific. Moderate stool burden. No evidence for obstruction or norm e air. No abnormal mass lesion or calcification is seen. IUD in place. Osseous structures are intact. Impression: Moderate stool burden. No evidence of bowel obstruction. IUD in place. Reviewed, dictated and finalized at location . Impression: Moderate stool burden. No evidence of bowel obstruction. IUD in place.
[2023-06-24 21:42] VITALS: BP 131/79; PULSE 90; RESP 15; TEMP 37; O2SAT 99
[2023-06-25 00:23] VITALS: BP 133/80; PULSE 84; RESP 17; O2SAT 100
[2023-06-25 01:51] VITALS: BP 109/76; PULSE 86; RESP 18; O2SAT 98
[2023-06-25 04:02] VITALS: BP 120/72; PULSE 70; RESP 18; O2SAT 99
--- NOTE | 2023-06-25 04:40 | ED.GENADULT ---
HPI - General Adult General Chief complaint: Unspecified Stated complaint: constipation Time Seen by Provider: 06/25/23 02:27 History of Present Illness HPI narrative: Patient 22-year-old female who presents the emergency department with chief complaint of constipation. Patient reports that she has had no bowel movement for 3 days patient reports that the abdomen feels as though there is uncomfortable feeling as though she needs to have a bowel movement. Patient does report that she has had some enemas that have not been successful. Related Data Home Medications Medication Instructions Recorded Confirmed clonidine HCl 0.1 mg tablet 04/26/21 aripiprazole 10 mg tablet mg 06/27/22 duloxetine 20 mg capsule,delayed mg PO 06/27/22 release Allergies Allergy/AdvReac Type Severity Reaction Status Date / Time No Known Allergies Allergy Unknown Verified 06/25/23 00:18 Review of Systems Review of Systems: A 10 system review of systems was completed on the patient and is negative except for what is stated in the HPI. Nursing and ancillary documentation was reviewed. PMFSH Past Medical History Medical History Anxiety Surgical History Surgical History No pertinent past surgical history Social History Social History Smoking status: Former smoker Substance use: never Substance use type: prescription drug Gender identity (if verbalized by the patient): Male Exam Narrative: GENERAL: Well-appearing, well-nourished, and in no acute distress. HEAD: Normocephalic, atraumatic. EYES: PERRLA and EOMI. ENT: Nares clear, no rhinorrhea or epistaxis. Mucous membranes moist. NECK: Supple. CHEST: Clear to auscultation. No respiratory distress. HEART: Regular rate and rhythm. No murmur heard. Normal peripheral pulses. ABDOMEN: Soft, minimal tenderness throughout the abdomen no localizing tenderness, nondistended, normal active bowel sounds. : No fecal impaction, guaiac negative stool EXTREMITIES: Normal range of motion. No edema. SKIN: Warm, dry, no rash. NEURO: No focal deficits. Alert and oriented x3. PSYCH: Normal mood and affect. Course Vital Signs Vital signs: Vital Signs Temperature 37.0 C 06/24/23 21:42 Pulse Rate 90 06/24/23 21:42 Respiratory Rate 15 06/24/23 21:42 Blood Pressure 131/79 06/24/23 21:42 Pulse Oximetry 99 06/24/23 21:42 Oxygen Delivery Room Air 06/24/23 21:42 Temperature 37.0 C 06/24/23 21:42 Pulse Rate 70 06/25/23 04:02 Respiratory Rate 18 06/25/23 04:02 Blood Pressure 120/72 06/25/23 04:02 Pulse Oximetry 99 06/25/23 04:02 Oxygen Delivery Room Air 06/24/23 21:42 Medical Decision Making MDM Narrative Medical decision making narrative: Differential diagnosis includes constipation, bowel obstruction, fecal impaction Exam showed no evidence of fecal impaction. Plain film x-rays of the abdomen showed a fair amount of stool throughout the intestines without evidence of obstruction. Patient's exam was not consistent with acute peritonitis The patient will be started on MiraLAX and will be discharged home patient is to return if she has worsening symptoms. Vital Signs Vital Signs: Vital Signs Temperature 37.0 C 06/24/23 21:42 Pulse Rate 90 06/24/23 21:42 Respiratory Rate 15 06/24/23 21:42 Blood Pressure 131/79 06/24/23 21:42 Pulse Oximetry 99 06/24/23 21:42 Oxygen Delivery Room Air 06/24/23 21:42 Temperature 37.0 C 06/24/23 21:42 Pulse Rate 70 06/25/23 04:02 Respiratory Rate 18 06/25/23 04:02 Blood Pressure 120/72 06/25/23 04:02 Pulse Oximetry 99 06/25/23 04:02 Oxygen Delivery Room Air 06/24/23 21:42 Lab Data Labs: UCG Bedside Result Negative
[2023-06-25] MEDS: polyethylene glycoL 3350 17 GM POWD.PACK PO (05:10)
[2023-06-25 05:21] VITALS: BP 124/76; PULSE 83; RESP 18; O2SAT 100
== END 2023-06-25 05:12 | disposition home or self-care (01) ==
PROVIDERS: Emergency Provider Emergency Medicine
DX: K59.00 Constipation, unspecified (principal); F41.9 Anxiety disorder, unspecified; Z87.891 Personal history of nicotine dependence
CPT/HCPCS: 74018; 81025; 99283

== ENCOUNTER 2023-10-28 14:46 | Outpatient (CLI) | payer OTHER, SELFPAY ==
--- NOTE | ~2023-10-28 | XR_ITS ---
XR_[id number]_CR DATE: 10/28/2023 15:46 INDICATION: Right knee pain TECHNIQUE: Standing AP and lateral views COMPARISON: None FINDINGS: No fracture or dislocation or joint effusion. Joint spaces are well preserved. No periostea l reaction or bone destruction. No radiopaque intra-articular loose body or chondrocalcinosis. IMPRESSION: Negative Reviewed, dictated and finalized at Location A. Reviewed, dictated and finalized at location L. ERY CASHIER IMPRESSION: Negative
--- NOTE | ~2023-10-28 | XR_ITS ---
XR_[id number]_[id number] DATE: 10/28/2023 15:46 INDICATION: Left knee pain TECHNIQUE: AP and lateral standing views COMPARISON: None FINDINGS: No fracture or dislocation or joint effusion. No periosteal reaction or bone destruction. J oint spaces are preserved. No radiopaque intra-articular loose body or chondrocalcinosis. IMPRESSION: Negative Reviewed, dictated and finalized at Location [facility]. Reviewed, dictated and finalized at location L. P CUTTING MACHINE OPERATOR IMPRESSION: Negative
--- NOTE | ~2023-10-28 | XR_ITS ---
XR lumbar spine 2-3V DATE: 10/28/2023 15:46 INDICATION: Low back pain TECHNIQUE: Standing AP, lateral and coned lateral lumbosacral views COMPARISON: None FINDINGS: Included lower thoracic and lumbar pedicles are intact. No fracture or bone destruction or spondylolisthesis. Lumbar interspaces appear preserved. The sacroiliac joints are intact. IUD. IMPRESSION: No significant abnormality of the lumbar spine Reviewed, dictated and finalized at location L. URER IN MARKETING
--- NOTE | ~2023-10-28 | XR_ITS ---
XR_[id number]_CR DATE: 10/28/2023 15:46 INDICATION: Chronic neck pain TECHNIQUE: AP, open-mouth and lateral views COMPARISON: None FINDINGS: Bilateral elongated transverse processes at C7. There is straightening of the cervical spine which may be due to muscle spasm. C1 and C2 are normally aligned and the odontoid process is intact. No fracture or dislocation or locked facet or prevertebr al soft tissue swelling. The cervical interspaces are well preserved. IMPRESSION: Straightening of cervical spine Bilateral C7 elongated transverse processes Reviewed, dictated and finalized at Location A. Reviewed, dictated and finalized at location L. K CAR OPERATOR
== END 2023-10-28 14:47 | disposition home or self-care (01) ==
LOC: ANHIMG 15:00
PROVIDERS: PCP Hospitalist; Visit Provider Hospitalist
DX: M43.8X2 Other specified deforming dorsopathies, cervical region (principal); M54.2 Cervicalgia; G89.29 Other chronic pain
CPT/HCPCS: 72040; 72100; 73560

== ENCOUNTER 2023-12-22 15:00 | Outpatient (RCR) | payer OTHER, SELFPAY ==
--- NOTE | 2023-11-17 15:24 | PTOPEVAL1 ---
Assessment and note entered by Butch Espinal, PT Evaluation Information Assessment Status Evaluation Diagnosis Low back pain without sciatica, Neck pain Onset Chronic 5 years Subjective Information Patient reports that they have had pain off and on for the past 5+ years. Pain all started in low back and hips and has worked into rest of body. Patient has been using a 4 wheeled walker off and on for years. Reports anemia and iron deficiency in combination with pain as the cause. Pain is radiating down legs at this time and is greater on left hip and leg. Neck pain is bilaterally. Patient has had difficulty with sleeping at night both falling asleep and staying asleep. Patient is able to drive but does not feel they can maintain a position for too long without pain. Reported Pain Level Pain Score 7: Self Report Assessment PT Clinical Summary Patient presents with poor periscapular and hip/ lumbar stability with ADL. Some mobility deficits noted in yanna hips and can be addressed through skilled therapy to improve gross movement and ADL performance. Plan of Care Interventions Electrical Stimulation,Gait Training,Manual Therapy,Neuro Re-education,Therapeutic Activities, Therapeutic Exercise PT Services Indicated Yes Treatment Frequency and 2x/week for 8 visits Duration These treatments will address the objective and functional deficits as defined above. The patient will be advanced safely and appropriately in order for the patient to progress towards his/her prior level of function. Additional exercises will be introduced and as well as a comprehensive home exercise program upon discharge, if needed, ?to ensure carryover of functional gains achieved in the clinic. This treatment plan has been reviewed and agreement upon by the patient.
--- NOTE | 2023-11-17 15:25 | OPREHPOC ---
Outpatient Therapy Plan of Care This is a Multidisciplinary Plan of Care that may contain components documented by all disciplines (PT, OT, and ST.) PT Problem 1 PT Problem #1 Knowledge Deficit PT Goal 1 Goal [place] with HEP Target Visit 4 PT Problem 2 PT Problem #2 Pain PT Goal 1 Goal Report no pain greater than 2/10 with walking activity greater than 500 feet Target Visit 4 PT Problem 3 PT Problem #3 Impaired Range of Motion PT Goal 1 Goal Demonstrate >-20 degrees of hamstring restriction to reduce posterior pull during ADLs Target Visit 8 PT Goal 2 Goal Demonstrate Mild to no restriction with piriformis stretch to reduce possible sciatica irritation and radicular symptoms Target Visit 8 PT Problem 4 PT Problem #4 Impaired Strength PT Goal 1 Goal Improve yanna hip abduction strength to 4/5 to improve lateral stability with ADLs and ambulation Target Visit 8 PT Problem 5 PT Problem #5 Impaired Gait PT Goal 1 Goal Ambulate independent of AD Target Visit 8
--- NOTE | 2023-12-02 17:13 | PCPTNOTE ---
Patient called & cancelled scheduled appointment this date due to being sick. Will continue per POC.
--- NOTE | 2023-12-15 15:23 | PCPTNOTE ---
Patient Cancelled today's therapy session.
--- NOTE | 2023-12-22 16:12 | PTOPDC ---
Assessment and note entered by Butch Espinal, PT Evaluation Information Assessment Status Discharge Diagnosis Low back pain without sciatica, Neck pain Onset Chronic 5 years Subjective Information Patient reports overall doing a lot better. Reports that back pain is controlled but due to tics, neck continues to be sore off and on. Feels comfortable with HEP and with discharge at this time. Reported Pain Level Pain Score 0: Self Report Assessment PT Clinical Summary Patient met all goals for therapy and is suitable for discharge at this time to [facility]. Has made significant progress in independent mobility and strength. Plan of Care PT Services Indicated D/C to [facility]
--- NOTE | 2023-12-22 16:12 | OPREHPOC ---
Outpatient Therapy Plan of Care This is a Multidisciplinary Plan of Care that may contain components documented by all disciplines (PT, OT, and ST.) PT Problem 1 PT Problem #1 Knowledge Deficit PT Goal 1 Goal [place] with HEP Target Visit 4 Progress Met PT Problem 2 PT Problem #2 Pain PT Goal 1 Goal Report no pain greater than 2/10 with walking activity greater than 500 feet Target Visit 4 Progress Met PT Problem 3 PT Problem #3 Impaired Range of Motion PT Goal 1 Goal Demonstrate >-20 degrees of hamstring restriction to reduce posterior pull during ADLs Target Visit 8 Progress Met PT Goal 2 Goal Demonstrate Mild to no restriction with piriformis stretch to reduce possible sciatica irritation and radicular symptoms Target Visit 8 Progress Met PT Problem 4 PT Problem #4 Impaired Strength PT Goal 1 Goal Improve yanna hip abduction strength to 4/5 to improve lateral stability with ADLs and ambulation Target Visit 8 Progress Partially Met PT Problem 5 PT Problem #5 Impaired Gait PT Goal 1 Goal Ambulate independent of AD Target Visit 8 Progress Met
== END 2023-12-23 07:14 | disposition home or self-care (01) ==
LOC: ANHPT 15:00
PROVIDERS: PCP Hospitalist; Visit Provider Family Medicine
DX: M54.2 Cervicalgia (principal); G89.29 Other chronic pain
CPT/HCPCS: 97110; 97112; 97161; 97530